=== PATIENT | female | born 1995 | race Caucasian/White ===

== ENCOUNTER 2021-06-03 02:24 | Emergency (ER) | payer SELFPAY ==
[~2021-06-03] VITALS: Ht 165.1 cm; Wt 70.3 kg
[2021-06-03 02:34] VITALS: BP 150/100
--- NOTE | 2021-06-03 03:19 | NUR ---
Patient discharged to home in stable condition. Written and verbal after care instructions given. Patient verbalizes understanding of instruction.
== END 2021-06-03 03:21 | disposition home or self-care (01) ==
LOC: ER 02:28
DX: M62.838 Other muscle spasm (principal); M54.12 Radiculopathy, cervical region